=== PATIENT | female | born 1980 | race Hispanic/Latino ===

== ENCOUNTER 2023-06-06 15:48 | Emergency (ER) | payer OTHER ==
[2023-06-06 16:24] LABS: #Monocytes 0.6 thou/uL (0.11-0.59); #Neutrophils 3.3 thou/uL (1.40-6.50); %Basophils 0.8 % (0.0-1.0); %Eosinophils 0.4 % (0.0-10.0); %Monocytes 11.2 % (0.0-10.0); %Neutrophils 65.4 % (42.0-75.0); Hematocrit 24.9 % (36.0-47.0); Hemoglobin 6.5 g/dL (12.0-16.0); Mean Corpuscular HGB CONC 26.1 g/dL (32.0-36.0); Mean Corpuscular Hemoglobin 16.8 pg (27.0-31.0); Mean Corpuscular Volume 64.2 fl (78.0-98.0); Mean Platelet Volume 8.7 fL (7.4-10.4); Platelet Count 354 10x3/uL (130-400); RBC Distribution Width 19.8 % (11.5-14.5); Red Blood Cell (RBC) Count 3.88 mill/uL (4.20-5.40)
[2023-06-06 16:47] LABS: ALT (SGPT) 34 U/L (8-55); AST (SGOT) 33 U/L (5-34); Albumin 3.7 g/dL (3.5-5.0); Alkaline Phosphatase 207 U/L (40-110); Anion Gap 12 mmol/L (10-20); BUN (Urea Nitrogen) 5 mg/dL (7.0-18.7); Bilirubin, Total 0.6 mg/dL (0.2-1.2); Calc. Creatinine Clearance 0 mL/min (70-130); Calcium 8.5 mg/dL (7.8-10.44); Carbon Dioxide 23 mmol/L (22-29); Chloride 106 mmol/L (98-107); Estimated GFR 113; Globulin 3.5 g/dL (2.4-3.5); Glucose 126 mg/dL (70-105); Potassium 4.1 mmol/L (3.5-5.1); Protein, Total 7.2 g/dL (6.0-8.3); Sodium 137 mmol/L (136-145)
[2023-06-06 16:56] LABS: Anisocytosis SLIGHT = 6-15 cells HPF (0-5); CellaVision Operator ID LAB.KB; Hypochromia MODERATE=16-30 cells HPF (0-5); Microcytosis MODERATE=15-30 cells HPF (0-5); Platelet Adequacy Comment Platelets Normal; Polychromasia SLIGHT = 2-3 cells HPF (0-2); Reflex for Review?? YES
== END 2023-06-06 21:25 | disposition home or self-care (01) ==
LOC: ERS 15:48
DX: D64.9 Anemia, unspecified (principal)
CPT/HCPCS: 36415; 36430; 80053; 85025; 85060; 86850; 86900; 86901; 99284; P9016

== ENCOUNTER 2023-06-28 14:00 | Outpatient (CLI) | payer OTHER | END 2023-06-28 14:01 | disposition home or self-care (01) | LOC: BICMAMMO 14:00 | PROVIDERS: ATTEND Family Medicine | DX: Z12.31 Encounter for screening mammogram for malignant neoplasm of breast (principal); Z98.82 Breast implant status | CPT/HCPCS: 77063; 77067 ==